=== PATIENT | female | born 1965 | race Caucasian/White ===

== ENCOUNTER 2025-07-08 11:10 | Emergency (ER) | payer SELFPAY ==
[2025-07-08] MEDS: Ketorolac 30 MG/ML SDV IM ONE (11:57)
== END 2025-07-08 13:30 | disposition home or self-care (01) ==
LOC: JP.ED 11:10
DX: M62.830 Muscle spasm of back (principal); Z88.8 Allergy status to other drugs, medicaments and biological substances; Z79.899 Other long term (current) drug therapy
CPT/HCPCS: 96372; 99284; A9270; J1885; 99283

== ENCOUNTER 2025-07-18 10:47 | Emergency (ER) | payer OTHER ==
[2025-07-18] MEDS: Ketorolac 30 MG/ML SDV IM ONE (15:59)
== END 2025-07-18 16:45 | disposition home or self-care (01) ==
LOC: JP.ED 10:47
DX: S22.089A Unspecified fracture of T11-T12 vertebra, initial encounter for closed fracture (principal); Q83.9 Congenital malformation of breast, unspecified; Z88.5 Allergy status to narcotic agent; X58.XXXA Exposure to other specified factors, initial encounter
CPT/HCPCS: 72050; 72125; 76377; 96372; 99283; A9270; J1885